=== PATIENT | male | born 1990 | race Caucasian/White ===

== ENCOUNTER → 2017-09-04 | Outpatient (CLI) | payer OTHER ==
[~2017-09-04] MED LIST: IBUP-1050 PO; LYR50 PO; METH500T PO
[2017-09-04 17:53] LABS: BASO % 0.5 %; BASO ABS # 0.05 K/uL (0-0.2); EOS % 3.4 %; EOS ABS # 0.33 K/uL (0-0.5); HEMATOCRIT 46.4 % (42-52); HEMOGLOBIN 15.9 g/dL (14.0-18.0); IG# 0.02 K/uL (0.00-0.02); LYMPH % 30.6 %; LYMPH ABS # 2.98 K/uL (1.2-3.4); MEAN CELL VOLUME 92.2 fL (80-100); MEAN CORPUSCULAR HEMOGLOBIN 31.6 pg (25-34); MEAN CORPUSCULAR HGB CONC 34.3 g/dl (32-36); MEAN PLATELET VOLUME 11.4 fL (7.4-10.4); MONO % 14.9 %; MONO ABS # 1.45 K/uL (0.11-0.59); NEUT % 50.4 %; NEUT ABS # 4.91 K/uL (1.4-6.5); PLATELET COUNT 343 K/uL (130-400); RED CELL DISTRIBUTION WIDTH CV 12.3 % (11.5-14.5); RED CELL DISTRIBUTION WIDTH SD 41.3 fL (36.4-46.3); WHITE BLOOD COUNT 9.74 K/uL (4.8-10.8)
[2017-09-04 19:01] LABS: BLOOD UREA NITROGEN 9 mg/dl (7-18); CALCIUM 9.5 mg/dl (8.5-10.1); CARBON DIOXIDE 29 mmol/L (21-32); GLUCOSE 81 mg/dl (70-99); SODIUM 136 mmol/L (136-145)
== END | disposition home or self-care (01) ==
LOC: C.LABMFLN 12:37
PROVIDERS: ATTEND Family Medicine
DX: K59.00 Constipation, unspecified (principal); K92.1 Melena